=== PATIENT | male | born 1950 | race Caucasian/White ===

== ENCOUNTER → 2024-01-30 07:37 | Outpatient (REF) | payer MEDICARE, SELFPAY ==
[2024-01-30 10:42] LABS: ALT (SGPT) 21 U/L (0-50); AST (SGOT) 26 U/L (17-59); Alkaline Phosphatase 64 U/L (38-126); Blood Urea Nitrogen 19 mg/dl (9-20); Calcium 9.5 mg/dl (8.4-10.2); Carbon Dioxide 28 mmol/L (22-30); Chloride 100 mmol/L (98-107); Glucose 97 mg/dl (70-99); HDL Cholesterol 63 mg/dl; LDL Cholesterol, Calculated 75 mg/dl; Potassium 4.5 mmol/L (3.5-5.1); Sodium 136 mmol/L (135-145); Total Bilirubin 0.8 mg/dl (0.2-1.3); Total Cholesterol 152 mg/dl (50-199); Total Protein 6.9 g/dl (6.3-8.2); Triglyceride 74 mg/dl (10-149); Very Low Density Lipoprotein 14 mg/dl (0-30); eGFR > 60.00
== END ==
LOC: HWLAB 07:37
PROVIDERS: ATTENDING PHYSICIAN Nurse Practitioner Family
DX: E78.00 Pure hypercholesterolemia, unspecified (principal)
CPT/HCPCS: 36415; 80053; 80061

== ENCOUNTER → 2024-08-05 08:23 | Outpatient (REF) | payer MEDICARE, SELFPAY ==
[2024-08-05 13:06] LABS: ALT (SGPT) 23 U/L (0-50); AST (SGOT) 31 U/L (17-59); Albumin 4.3 g/dl (3.5-5.0); Alkaline Phosphatase 58 U/L (38-126); Blood Urea Nitrogen 21 mg/dl (9-20); Calcium 9.2 mg/dl (8.4-10.2); Carbon Dioxide 26 mmol/L (22-30); Chloride 104 mmol/L (98-107); Glucose 93 mg/dl (70-99); HDL Cholesterol 72 mg/dl; LDL Cholesterol, Calculated 93 mg/dl; Potassium 4.3 mmol/L (3.5-5.1); Sodium 140 mmol/L (135-145); Total Bilirubin 0.9 mg/dl (0.2-1.3); Total Cholesterol 177 mg/dl (50-199); Triglyceride 62 mg/dl (10-149); Very Low Density Lipoprotein 12 mg/dl (0-30); eGFR > 60.00
[2024-08-05 13:29] LABS: PSA, Total - Diagnostic 0.96 ng/ml (0.0-4.0)
== END ==
LOC: HWLAB 08:23
PROVIDERS: ATTENDING PHYSICIAN Nurse Practitioner Family; REFERRING PHYSICIAN Specialist
DX: E78.00 Pure hypercholesterolemia, unspecified (principal); C61 Malignant neoplasm of prostate
CPT/HCPCS: 36415; 80053; 80061; 84153

== ENCOUNTER 2024-10-20 08:08 | Emergency (ER) | payer MEDICARE, SELFPAY ==
[2024-10-20 08:10] VITALS: BP 166/87
[2024-10-20 09:08] VITALS: BMI 28.6
[2024-10-20 09:14] LABS: % Basophils 0.2 % (0-2); % Eosinophils 0.1 % (0-6); % Immature Granulocytes 0.5 % (0-0.5); % Lymphocytes 6.4 % (20.5-51.1); % Neutrophils 84.8 % (42.2-75.2); Absolute Immature Granulocytes 0.1 10^3/uL (0-0.05); Absolute Lymphocytes 0.8 10^3/uL (1.2-3.4); Absolute Monocytes 1.1 10^3/uL (0.1-0.6); Absolute Neutrophils 11.1 10^3/uL (1.4-6.5); Hematocrit 39.1 % (39.0-52.0); Hemoglobin 13.8 g/dL (13.0-18.0); Mean Corp Hgb Conc. 35.3 g/dL (33.0-37.0); Mean Corpuscular Hgb 33.4 pg (27.0-31.0); Mean Corpuscular Volume 94.7 fL (80.0-94.0); Mean Platelet Volume 9.2 fL (7.4-10.4); Nucleated Red Blood Cells % 0 % (-); Platelet Count 211 10^3/uL (130-400); Red Blood Cell Count 4.13 10^6/uL (4.70-6.10); Red Cell Dist. Width 12.1 % (11.5-14.5); White Blood Cell Count 13.1 10^3/uL (4.8-10.8)
[2024-10-20] MEDS: TORADOL 30 MG IV (09:14)
[2024-10-20 09:31] LABS: Urine Albumin Negative (Neg - Trace); Urine Bilirubin Negative (Negative); Urine Character Clear (Clear); Urine Color Yellow; Urine Glucose Negative (Negative); Urine Ketone Trace (Negative); Urine Leukocyte Negative (Negative); Urine Nitrite Negative (Negative); Urine Occult Blood 2+ (Negative); Urine Specific Gravity 1.015 (<1.030); Urine Urobilinogen Negative (Neg - 1+)
--- NOTE | 2024-10-20 09:44 | ED.GENMED ---
History of Present Illness
General
Chief Complaint: Bowel Problem
Source: patient and spouse
Exam Limitations: none
Time Seen by Provider: 10/20/24 08:17
Nursing documentation reviewed up to this point in time: agreed with
History of Present Illness
History of Present Illness:
74-year-old male past med history of prostate carcinoma status post resection, anxiety presenting to the emergency department today with concerns of worsening abdominal distention abdominal discomfort mainly to the left lower quadrant and left flank
also with no bowel movements over the past 3 days which is atypical for him. He tried taking Ex-Lax at home without relief. Denies nausea vomiting chest pain shortness of breath. Denies similar issues in the past. No abdominal surgeries in the
past other than his partial prostatectomy
Past History
Past History
ED Past Medical History: None, Cancer (Prostate cancer) and Other (anxiety. no hx of cerebral aneurysm nor history of connective tissue disease nor polycystic kidney disease. recent lower right tooth infection)
ED Past Surgical History: Urological (Prostatectomy)
Social History
Tobacco: Non-smoker
Drug: None
Living: with family
Family History
Family History: Unable to obtain
Review of Systems
Review of Systems
Allergies reviewed?: Yes
All Other Systems: ROS reviewed and negative except as documented in HPI and ROS
Phy Exam
Physical Exam
Physical Exam:
GENERAL: Alert , in no apparent distress
EYE: pupils equal and reactive
NECK: Supple, no significant adenopathy.
ENT: o/p clr, mmm.
CARDIAC: Regular rate and rhythm .
LUNGS: Clear breath sounds bilaterally, no acute respiratory distress, no wheezes/rales/rhonchi
ABDOMEN: Distended abdomen with vague discomfort to the left lower quadrant and left flank.
NEUROLOGICAL: Alert and oriented, no focal neuro deficits
SKIN: Warm and dry, skin intact.
MUSCULOSKELETAL: No edema, well perfused.
PSYCH: Normal and appropriate interaction.
Course
Orders/Labs/Results
Orders:
Orders
10/20/24 08:43
CT Abd/Pel (IV only)-[facility] only Urgent
Comment:
Reason For Exam: llq pain, decreased BM's
10/20/24 09:05
Complete Blood Count/With Diff Urgent
10/20/24 09:08
Urinalysis Reflex To Culture Urgent
Date Specimen was Collected: 10/20/24
Time Specimen was Collected: 09:06
Urine Microscopic Reflex Cult Urgent
10/20/24 09:14
Ketorolac [Toradol] 30 mg IV NOW STA
10/20/24 09:27
Comprehensive Metabolic Panel Urgent
10/20/24 10:04
0.9% Sodium Chloride 1000 ml [Nss] 1,000 ml IV BOLUS
Abnormal Lab Results
10/20/24 10/20/24 10/20/24
09:05 09:08 09:27
WBC 13.1 H 10^3/uL
(4.8-10.8)
RBC 4.13 L 10^6/uL
(4.70-6.10)
MCV 94.7 H fL
(80.0-94.0)
MCH 33.4 H pg
(27.0-31.0)
Abs Immat Gran (auto) 0.1 H 10^3/uL
(0-0.05)
Absolute Neuts (auto) 11.1 H 10^3/uL
(1.4-6.5)
Absolute Lymphs (auto) 0.8 L 10^3/uL
(1.2-3.4)
Absolute Monos (auto) 1.1 H 10^3/uL
(0.1-0.6)
Neutrophils % 84.8 H %
(42.2-75.2)
Lymphocytes % 6.4 L %
(20.5-51.1)
BUN 24 H mg/dl
(9-20)
Creatinine 1.6 H mg/dL
(0.7-1.3)
Glucose 123 H mg/dl
(70-99)
Urine Ketones Trace A
(Negative)
Ur Occult Blood Reflex 2+ A
(Negative)
Urine RBC 3-6 A /HPF
(0-2)
10/20/24 09:05
10/20/24 09:27
Vital Signs
Initial and Last Documented VS:
Initial Vital Signs
Temp Pulse Resp BP Pulse Ox
98.8 F 65 18 166/87 98
10/20/24 08:10 10/20/24 08:10 10/20/24 08:10 10/20/24 08:10 10/20/24 08:10
Last Documented Vital Signs
Temp Pulse Resp BP Pulse Ox
98.8 F 60 18 167/82 98
10/20/24 08:10 10/20/24 12:59 10/20/24 12:59 10/20/24 12:59 10/20/24 12:59
MDM/Problems Addressed
MDM/Problems Addressed:
74-year-old male presenting to the emergency department today with concerns of worsening abdominal distention decrease a tight lack of bowel movements over the past 3 days. Pain mainly to the left side of the abdomen. Plan for CT scan for further
assessment. CT scan showing 2 mm obstructing stone to the distal left sided ureter. Otherwise given Toradol with significant improvement of symptoms. Patient did have a slight white count 13.1 but no evidence of infection on urinalysis. Patient
had a slight elevation of his creatinine level of 1.6 and BUN of 24. Patient typically hovers around 1.0. Here patient is able to tolerate by mouth was given a liter of fluid. Otherwise symptoms fully asymptomatic while here in the ER appears
stable for close outpatient follow-up return precautions were given.
*Critical Care Note
Total Time (30-74mins, 75-104mins- exclusive of procedures): Not Applicable
ED Attending Note
-
Portions of this chart may have been created with voice recognition software.� Occasional wrong word or��sound alike� substitutions may have occurred due to the inherent limitations of voice recognition software.
Discharge Plan
Departure
Patient Disposition: Home (Routine Discharge)
Date of Disposition: 10/20/24
Time of Disposition: 13:19
Patient with high blood pressure during this ER visit?: No
Condition: Good
Covid-19: Not Applicable
Discharge Problem:
Kidney stone, Constipation, Elevated serum creatinine
Instructions: Kidney stones in adults, Constipation, Adult (DC)
Prescriptions:
New
magnesium citrate Solution
300 ml PO DAILY PRN (Reason: Constipation) Qty: 296 0RF
ketorolac 10 mg tablet
10 mg PO Q8H PRN (Reason: Pain) 1 Days Qty: 10 0RF
docusate sodium [Colace] 100 mg capsule
100 mg PO DAILY Qty: 20 0RF
tamsulosin [Flomax] 0.4 mg capsule
0.4 mg PO HS Qty: 7 0RF
No Action
aspirin 81 MG tablet,delayed release (DR/EC)
81 mg PO DAILY
acetaminophen [Tylenol Extra Strength] 500 MG tablet
500 mg PO Q4HPRN PRN (Reason: for pain)
Patient Comments:
PATIENT TOOK TWO 500MG LAST NIGHT FOR BACK DISCONFORT
Abilify:
1 dose PO HS
omeprazole magnesium [Prilosec OTC] 20 MG tablet,delayed release (DR/EC)
20 mg PO PRN PRN (Reason: as directed)
Zoloft:
1 dose PO HS
dicyclomine 20 MG tablet
20 mg PO QID Qty: 20 0RF
hydrocodone-acetaminophen 1 TABLET tablet
1 tab PO Q4HPRN PRN (Reason: pain) Qty: 10 0RF
tamsulosin 0.4 MG capsule
0.4 mg PO DAILY Qty: 30 0RF
Referrals:
Vinh Allen CRNP [Family Provider] -
Manish Shaikh MD [Active] - Follow up in 5-7 days
Activity Restrictions/Additional Instructions:
You came to the emergency department today with concerns of left-sided abdominal and flank discomfort. You are found have a stone that likely is causing the sharp pain. Please take the Flomax and drink plenty of fluids. You will need to follow-up
closely with urology and get repeated blood test to ensure that your kidney test are improving. Otherwise you also appear to be constipated. Please take the prescribed medications to help with ongoing bowel movements. Return to the emergency
department for any worsening, new or concerning symptoms.
Interventions
Interventions:
*Risk Screen - Suicide Last Done: 10/20/24 08:10
*General Assessment Last Done: 10/20/24 09:07
*Neglect/Abuse Screening Last Done: 10/20/24 08:10
*ED COVID-19 Vaccine History Last Done: 10/20/24 08:10
BI-Cyukpb-Hvngfhpxvu Assessment Last Done: 10/20/24 09:21
Discharge Date and Time
Print Language: FRENCH
[2024-10-20 09:50] LABS: Urine Amorphous Seen; Urine Mucus Few; Urine Squamous Cell 0-2 /LPF (Few)
[2024-10-20 09:52] LABS: Urine Hyaline Cast 0-2 /LPF (0-2); Urine White Cell 0-2 /HPF (0-5)
[2024-10-20 10:01] LABS: ALT (SGPT) 26 U/L (0-50); AST (SGOT) 41 U/L (17-59); Albumin 4.2 g/dl (3.5-5.0); Alkaline Phosphatase 54 U/L (38-126); Blood Urea Nitrogen 24 mg/dl (9-20); Calcium 8.8 mg/dl (8.4-10.2); Carbon Dioxide 24 mmol/L (22-30); Chloride 103 mmol/L (98-107); Estimated Creatinine Clearance 37 ml/min; Glucose 123 mg/dl (70-99); Potassium 4.9 mmol/L (3.5-5.1); Sodium 136 mmol/L (135-145); Total Bilirubin 1.3 mg/dl (0.2-1.3); Total Protein 6.9 g/dl (6.3-8.2); eGFR 45.21
[2024-10-20] MEDS: NSS 1000 IV (10:08)
[2024-10-20 12:59] VITALS: BP 167/82
[2024-10-20] MEDS: FLOMAX 0.4 MG PO (13:27)
== END 2024-10-20 13:30 | disposition home or self-care (01) ==
LOC: EMR 08:08
PROVIDERS: Physician Assistant; EMERGENCY PHYSICIAN Student in an Organized Health Care Education/Training Program; FAMILY PHYSICIAN Nurse Practitioner Family
DX: N13.2 Hydronephrosis with renal and ureteral calculous obstruction (principal); R79.89 Other specified abnormal findings of blood chemistry; K59.00 Constipation, unspecified
CPT/HCPCS: 99285; 96374; 96361; 74177; 80053; 81003; 81015; 85025; Q9967

== ENCOUNTER → 2025-08-07 09:35 | Outpatient (REF) | payer MEDICARE, SELFPAY ==
[2025-08-07 12:48] LABS: PSA, Total - Diagnostic 1.80 ng/ml (0.0-4.0)
== END ==
LOC: HWLAB 09:35
PROVIDERS: ATTENDING PHYSICIAN Specialist; FAMILY PHYSICIAN Nurse Practitioner Family
DX: C61 Malignant neoplasm of prostate (principal)
CPT/HCPCS: 36415; 84153

== ENCOUNTER → 2025-09-25 08:10 | Outpatient (REF) | payer MEDICARE, SELFPAY ==
[2025-09-25 10:07] LABS: Hematocrit 40.4 % (39.0-52.0); Hemoglobin 14.2 g/dL (13.0-18.0); Mean Corp Hgb Conc. 35.1 g/dL (33.0-37.0); Mean Corpuscular Volume 95.5 fL (80.0-94.0); Nucleated Red Blood Cells % 0 % (-); Platelet Count 241 10^3/uL (130-400); Red Cell Dist. Width 12.1 % (11.5-14.5)
[2025-09-25 10:27] LABS: HDL Cholesterol 54 mg/dl; LDL Cholesterol, Calculated 86 mg/dl; Very Low Density Lipoprotein 17 mg/dl (0-30)
== END ==
LOC: HWLAB 08:10
PROVIDERS: ATTENDING PHYSICIAN Nurse Practitioner Family
DX: E78.00 Pure hypercholesterolemia, unspecified (principal); R73.01 Impaired fasting glucose
CPT/HCPCS: 36415; 80061; 84443; 85025

== ENCOUNTER → 2025-09-30 08:23 | Outpatient (REF) | payer MEDICARE, SELFPAY ==
[2025-09-30 09:24] LABS: ALT (SGPT) 21 U/L (0-50); AST (SGOT) 27 U/L (17-59); Albumin 4.2 g/dl (3.5-5.0); Alkaline Phosphatase 56 U/L (38-126); Blood Urea Nitrogen 17 mg/dl (9-20); Calcium 9.2 mg/dl (8.4-10.2); Carbon Dioxide 27 mmol/L (22-30); Chloride 105 mmol/L (98-107); Glucose 99 mg/dl (70-99); Potassium 4.8 mmol/L (3.5-5.1); Sodium 136 mmol/L (135-145); Total Protein 7.0 g/dl (6.3-8.2); eGFR > 60.00
[2025-09-30 09:46] LABS: Glycohemoglobin (HgbA1c) 5.4 % (4.0-5.9)
[2025-09-30 09:52] LABS: PSA, Total - Diagnostic 1.68 ng/ml (0.0-4.0)
== END ==
LOC: REG 08:23
PROVIDERS: ATTENDING PHYSICIAN Nurse Practitioner Family; FAMILY PHYSICIAN Specialist
DX: R73.01 Impaired fasting glucose (principal); C61 Malignant neoplasm of prostate
CPT/HCPCS: 36415; 80053; 83036; 84153

== ENCOUNTER → 2025-10-05 10:20 | Outpatient (REF) | payer MEDICARE, SELFPAY | LOC: REG 10:20 | PROVIDERS: ATTENDING PHYSICIAN Nurse Practitioner Family | DX: M54.9 Dorsalgia, unspecified (principal); M54.2 Cervicalgia | CPT/HCPCS: 72050; 72072 ==